=== PATIENT | male | born 1975 | race Caucasian/White ===

== ENCOUNTER 2022-05-16 09:14 | Emergency (ER) | payer BC, OTHER | END 2022-05-16 13:32 | disposition home or self-care (01) | LOC: JD.ED 09:14 | DX: S01.01XA Laceration without foreign body of scalp, initial encounter (principal); W00.0XXA Fall on same level due to ice and snow, initial encounter; Y92.89 Other specified places as the place of occurrence of the external cause; Y99.0 Civilian activity done for income or pay | CPT/HCPCS: 12002; 70450; 70450-26; 72125; 72125-26; 99282; 99283 ==

== ENCOUNTER 2022-05-23 16:32 | Emergency (ER) | payer BC, OTHER | END 2022-05-23 16:50 | disposition home or self-care (01) | LOC: JD.ED 16:32 | DX: Z53.21 Procedure and treatment not carried out due to patient leaving prior to being seen by health care provider (principal) ==